=== PATIENT | female | born 1950 | race Caucasian/White ===

== ENCOUNTER 2016-10-10 17:15 | Emergency (ER) | payer OTHER ==
[2016-10-10 17:20] VITALS: BMI 25.2
[2016-10-10 18:07] LABS: BASOPHIL 1.5 % (0-2.0); EOSINOPHIL 1.5 % (0-4.5); MCH 25.8 pg (25.7-33.7); MCHC 33.1 g/dl (32.0-36.0); MEAN CELL VOLUME 78.1 fl (80-96); MEAN PLT VOLUME 10.1 fl (7.5-11.1); NEUTROPHILS 50.9 % (42.8-82.8); PLATELET COUNT 224 K/MM3 (134-434); RDW 13.9 % (11.6-15.6); WHITE BLOOD COUNT 8.3 K/mm3 (4.0-10.0)
[2016-10-10 18:08] LABS: URINE APPEARANCE SLCLOUDY; URINE BILIRUBIN NEGATIVE (NEGATIVE); URINE COLOR LTYELLOW; URINE GLUCOSE (UA) NEGATIVE (NEGATIVE); URINE KETONE NEGATIVE (NEGATIVE); URINE NITRITE NEGATIVE (NEGATIVE); URINE PROTEIN NEGATIVE (NEGATIVE); URINE UROBILINOGEN NEGATIVE E.U./dl (0.2-1.0)
--- NOTE | 2016-10-10 18:14 | PDOC ---
History of Present Illness - General Chief Complaint: Pain Stated Complaint: PCP SENT/BLOOD CLOT Time Seen by Provider: 10/10/16 17:32 History Source: Patient Exam Limitations: No Limitations - History of Present Illness Initial Comments: 10/10/16 18:15 65-year-old female presents the ED for complaints of right calf pain worsening with ambulation and movement over the past 4 days. Patient denies swelling, skin discoloration, sensory changes distally, previous DVT but does state is currently being worked up for venous stasis. Patient also complains of generalized fatigue with urinary frequency and mild shortness of breath on exertion. Patient denies history of anemia recent travel, recent illness, recent surgery, recent change in medications. Timing/Duration: other (4 days) Severity: moderate Associated Symptoms: reports: shortness of breath (mild with exertion), weakness (mild generalized). denies: chest pain, cough, fever/chills, headaches , loss of appetite, malaise, nausea/vomiting Past History - Travel Traveled outside of the country in the last 30 days: No Close contact w/someone who was outside of country & ill: No - Past Medical History Allergies/Adverse Reactions: Allergies Allergy/AdvReac Type Severity Reaction Status Date / Time fish derived [Fish derived] Allergy Severe Swelling Verified 10/10/16 17:16 levofloxacin [From Levaquin] Allergy Severe Swelling Verified 10/10/16 17:16 Penicillins Allergy Severe Swelling Verified 10/10/16 17:16 codeine Allergy Verified 10/10/16 17:16 prednisolone AdvReac Severe Nausea Verified 10/10/16 17:16 Home Medications: Ambulatory Orders Losartan 50Mg/Hctz 12.5MG 1 tab PO DAILY 10/27/15 Nitrofurantoin Monohyd/M-Cryst [Macrobid -] 100 mg PO BID #14 capsule 10/10/16 Anemia: No Asthma: No Cardiac Disorders: No Diabetes: No HTN: Yes Suicide Attempt (Hx): No - Surgical History Appendectomy: Yes - Immunization History Immunization Up to Date: Yes - Psycho/Social/Smoking Cessation Hx Anxiety: No Suicidal Ideation: No Smoking Status: No Smoking History: Never smoked Have you smoked in the past 12 months: No Number of Cigarettes Smoked Daily: 0 Information on smoking cessation initiated: No Hx Alcohol Use: No Drug/Substance Use Hx: No Substance Use Type: None Review of Systems - Review of Systems Able to Perform ROS?: No Is the patient limited Icelandic proficient: No Constitutional: Yes: Weakness (generalized) HEENTM: No: Symptoms Reported Respiratory: Yes: SOB with Exertion Cardiac (ROS): No: Symptoms Reported ABD/GI: No: Symptoms Reported : No: Symptoms Reported Musculoskeletal: Yes: Muscle Pain (right calf ) Integumentary: Yes: Symptoms Reported Neurological: Yes: Weakness (mild generalized) Endocrine: No: Symptoms Reported Hematologic/Lymphatic: No: Symptoms Reported, Blood Clots *Physical Exam - Vital Signs Last Vital Signs Temp Pulse Resp BP Pulse Ox 97.6 F 86 16 128/64 99 10/10/16 17:18 10/10/16 17:18 10/10/16 17:18 10/10/16 17:18 10/10/16 17:18 - Physical Exam General Appearance: Yes: Nourished, Appropriately Dressed. No: Apparent Distress HEENT: positive: EOMI, DAISHA. negative: Pale Conjunctivae Neck: positive: Supple Respiratory/Chest: positive: Lungs Clear, Normal Breath Sounds. negative: Respiratory Distress, Accessory Muscle Use Cardiovascular: positive: Regular Rhythm, Regular Rate. negative: Murmur Gastrointestinal/Abdominal: positive: Soft. negative: Tenderness Extremity: positive: Normal Capillary Refill, Normal Range of Motion, Calf Tenderness (+ homans sign to rle). negative: Pedal Edema Integumentary: positive: Normal Color, Warm. negative: Erythema, Pale, Swelling Neurologic: positive: Normal Mood/Affect, Motor Strength 5/5 (ambulatory) ED Treatment Course - LABORATORY CBC & Chemistry Diagram: 10/10/16 18:00 10/10/16 18:00 - RADIOLOGY Radiology Studies Ordered: Category Date Time Status CHEST X-RAY PORTABLE* [RAD] Stat Radiology 10/10/16 18:04 Ordered DUPLEX VASCUL US-1 LEG [US] Stat Ultrasound 10/10/16 17:33 Ordered Medical Decision Making - Medical Decision Making 10/10/16 18:20 Patient with rt calf tenderness sent over from the [facility] to rule out DVT. patient complaining also of mild generalized weakness, mild shortness of breath on exertion, and urinary freg.. Patient with history of hypertension in the process of being worked up for venous stasis. Patient positive Homans on my exam along with Tenderness. Patient had 2+ pedal pulses. Patient also ordered for a urinalysis, CBC, comp and chest x-ray along with duplex of the right lower extremity. 10/10/16 19:00 Laboratory Tests 10/10/16 10/10/16 10/10/16 18:00 18:00 18:00 WBC 8.3 Hgb 12.7 Hct 38.5 Plt Count 224 Neutrophils % 50.9 Sodium 138 Potassium 4.0 Chloride 102 Carbon Dioxide 28 Anion Gap 8 BUN 17 Creatinine 0.6 Creat Clearance w eGFR > 60 Random Glucose 109 H D Urine Ketones Negative Urine Blood 1+ H Ur Leukocyte Esterase 3+ H Urine WBC 315 pt ordered for urine culture. Reviewed patient's Microbiology profile. Patient has no previous positive urine culture. Patient will be given Macrobid here in the ER while awaiting duplex results. *DC/Admit/Observation/Transfer Diagnosis at time of Disposition: Logan's cyst, UTI (urinary tract infection) - Discharge Dispostion Disposition: HOME Condition at time of disposition: Stable - Prescriptions Prescriptions: Nitrofurantoin Monohyd/M-Cryst [Macrobid -] 100 mg PO BID #14 capsule - Referrals Referrals: Cristhian Lugo MD [Primary Care Provider] - - Patient Instructions Printed Discharge Instructions: DI for Logan's Cyst, DI for Urinary Tract Infection (UTI) Additional Instructions: Your Discharge Instructions: You must call primary care physician within 24 hours to arrange follow-up. Return to the Emergency Department with any new, persistent or worsening symptoms, for fever, chills, SOB, dizziness or any other concerning changes that may occur. Take Tylenol for the pain. YOU NEED TO FOLLOW UP WITH ORTHO FOR THE LOGAN'S CYST.
[2016-10-10 18:34] LABS: URINE BLOOD 1+ (NEGATIVE); URINE LEUK ESTERASE 3+ (NEGATIVE)
[2016-10-10 18:35] LABS: ALBUMIN 3.5 g/dl (3.4-5.0); ANION GAP 8 (8-16); BILIRUBIN,TOTAL 0.2 mg/dL (0.2-1.0); CALCIUM 8.5 mg/dL (8.5-10.1); CO2 28 mmol/L (21-32); CREATININE 0.6 mg/dL (0.55-1.02); GLUCOSE,RANDOM 109 mg/dL (74-106); SGOT/AST 22 U/L (15-37); SGPT/ALT 22 U/L (12-78); TOT PROT 6.9 g/dl (6.4-8.2); URINE MUCUS RARE; URINE RBC 11 /hpf (0-3); URINE WBC 315 /hpf (3-5)
[2016-10-10 18:36] LABS: ALK PHOS 112 U/L (45-117)
[2016-10-10] MEDS ORDERED: NITROFURANTOIN MACROCRYSTAL 50 MG CAPSULE (FP) PO SCH (19:15)
[2016-10-10] MEDS ORDERED: NITROFURANTOIN MACROCRYSTAL 50 MG CAPSULE (FP) ONE (19:25)
[2016-10-10 19:32] VITALS: BP 150/75; PULSE 81; TEMP 98.2
--- NOTE | 2016-10-10 20:31 | PDOC ---
*Physical Exam - Vital Signs Last Vital Signs Temp Pulse Resp BP Pulse Ox 98.2 F 81 16 150/75 98 10/10/16 19:31 10/10/16 19:31 10/10/16 19:31 10/10/16 19:31 10/10/16 19:31 ED Treatment Course - LABORATORY CBC & Chemistry Diagram: 10/10/16 18:00 10/10/16 18:00 - ADDITIONAL ORDERS Additional order review: Laboratory Results 10/10/16 10/10/16 10/10/16 18:00 18:00 18:00 Sodium 138 Potassium 4.0 Chloride 102 Carbon Dioxide 28 Anion Gap 8 BUN 17 Creatinine 0.6 Creat Clearance w eGFR > 60 Random Glucose 109 H D Calcium 8.5 Magnesium 2.2 Total Bilirubin 0.2 D AST 22 D ALT 22 Alkaline Phosphatase 112 Total Protein 6.9 Albumin 3.5 Urine Color Ltyellow Urine Appearance Slcloudy Urine pH 6.0 Urine Protein Negative Urine Glucose (UA) Negative Urine Ketones Negative Urine Blood 1+ H Urine Nitrite Negative Urine Bilirubin Negative Urine Urobilinogen Negative Ur Leukocyte Esterase 3+ H Urine RBC 11 Urine WBC 315 Ur Epithelial Cells Moderate Urine Mucus Rare 10/10/16 18:00 RBC 4.93 MCV 78.1 L MCHC 33.1 RDW 13.9 MPV 10.1 Neutrophils % 50.9 Lymphocytes % 34.6 D Monocytes % 11.5 H Eosinophils % 1.5 Basophils % 1.5 Medical Decision Making - Medical Decision Making 10/10/16 20:20 endorsed to me to follow US and labs work Patient Name: Elaine Avitia THIS IS A PRELIMINARY REPORT FROM [facility] DATE OF SERVICE: 2016-10-10 17:58:39.0 IMAGES: 25 EXAM: VENOUS DUPLEX UNILATERAL Right lower extremity REASON FOR EXAM: Pain and swelling COMPARISON : None FINDINGS: Transverse and longitudinal garcía scale views obtained. There is no echogenic thrombus. There is normal color flow filling the vessels with compressibility . Doppler demonstrates phasic and spontaneous flow as normal response to distal augmentation of the common femoral, superficial femoral, popliteal and proximal calf veins. There is a tiny 9 x 4x 8 mm IMPRESSION: No sonographic evidence of deep vein thrombosis, right leg. Tiny Logan's cyst. THIS DOCUMENT HAS BEEN ELECTRONICALLY SIGNED Guerline Hoffmann D.O. 10/10/2016 18:[place] GUTIERREZ M.D. Please call [facility] Attendant [phone] ([phone]) with questions 10/10/16 20:21 Laboratory Tests 10/10/16 18:00 Urine Color Ltyellow Urine Appearance Slcloudy Urine pH 6.0 Ur Specific Wright Pending Urine Protein Negative Urine Glucose (UA) Negative Urine Ketones Negative Urine Blood 1+ H Urine Nitrite Negative Urine Bilirubin Negative Urine Urobilinogen Negative Ur Leukocyte Esterase 3+ H Urine RBC 11 Urine WBC 315 Ur Epithelial Cells Moderate Urine Mucus Rare Patient received macrobid in the ED will sent Rx to the pharmacy. d/w patient the results of the Ortho for the Logan's cyst I discussed the physical exam findings, ancillary test results and final diagnoses with the patient. I answered all of the patient's questions. The patient was satisfied with the care received and felt comfortable with the discharge plan and treatment plan. The Patient agrees to follow up with the primary care physician within 24-72 hours. *DC/Admit/Observation/Transfer Diagnosis at time of Disposition: Logan's cyst Qualifiers: Laterality: unspecified laterality Qualified Code(s): M71.20 - Synovial cyst of popliteal space [Logan], unspecified knee UTI (urinary tract infection) Qualifiers: Urinary tract infection type: site unspecified Hematuria presence: without hematuria Qualified Code(s): N39.0 - Urinary tract infection, site not specified - Discharge Dispostion Disposition: HOME Condition at time of disposition: Stable - Prescriptions Prescriptions: Nitrofurantoin Monohyd/M-Cryst [Macrobid -] 100 mg PO BID #14 capsule - Referrals Referrals: Cristhian Lugo MD [Primary Care Provider] - - Patient Instructions Printed Discharge Instructions: DI for Urinary Tract Infection (UTI), DI for Logan's Cyst Additional Instructions: Your Discharge Instructions: You must call primary care physician within 24 hours to arrange follow-up. Return to the Emergency Department with any new, persistent or worsening symptoms, for fever, chills, SOB, dizziness or any other concerning changes that may occur. Take Tylenol for the pain. YOU NEED TO FOLLOW UP WITH ORTHO FOR THE LOGAN'S CYST.
== END 2016-10-10 20:39 | disposition home or self-care (01) ==
LOC: JER 17:15
DX: M71.21 Synovial cyst of popliteal space [Baker], right knee (principal); N39.0 Urinary tract infection, site not specified; I10 Essential (primary) hypertension
CPT/HCPCS: 36415; 71010-TC; 80053; 81003; 81015; 83735; 85025; 87086; 93971-TC; 99282-25

== ENCOUNTER 2018-05-13 00:20 | Emergency (ER) | payer BC, OTHER ==
--- NOTE | 2018-05-13 00:37 | PDOC ---
Attending Attestation - HPI HPI: 05/13/18 01:15 The patient is a 67 year old female with past medical history significant for HTN presents to the emergency department with shortness of breath. The patient reports she was on the phone with her son while eating some mixed peanuts when a sudden onset shortness of breath presented with the sensation that something is stuck in her throat. The patient currently denies any symptoms. Allergies: Penicillins, prednisolone, levofloxacin, and fish derived Social history: None reported. Surgical history: Appendectomy, Joint Replacement PCP: Cristhian Lugo. - Physicial Exam PE: 05/13/18 01:14 GENERAL: afebrile Awake, alert, and fully oriented, in no acute distress HEAD: No signs of trauma EYES: PERRLA, EOMI, sclera anicteric, conjunctiva clear ENT: +very dry lips. No throat swelling, no voice changes. Auricles normal inspection, hearing grossly normal, nares patent, oropharynx clear without exudates. Moist mucosa NECK: Normal ROM, supple, no lymphadenopathy, JVD, or masses LUNGS: Breath sounds equal, clear to auscultation bilaterally. No wheezes, and no crackles HEART: Regular rate and rhythm, not tachycardia, normal S1 and S2, no murmurs, rubs or gallops ABDOMEN: no flank pain. Soft, nontender, normoactive bowel sounds. No guarding , no rebound. No masses EXTREMITIES: No pitting edema. Normal range of motion, no edema. No clubbing or cyanosis. No cords, erythema, or tenderness NEUROLOGICAL: Cranial nerves II through XII grossly intact. Normal speech. SKIN: Warm, Dry, normal turgor, no rashes or lesions noted. - Medical Decision Making 05/13/18 01:14 Documentation prepared by Wendy Hernandez, acting as medical delivery technician for Mihaela Noonan MD. <Wendy Hernandez - Last Filed: 05/13/18 01:15> - Resident Resident Name: Marco Preston - ED Attending Attestation I have performed the following: I have examined & evaluated the patient, The case was reviewed & discussed with the resident, I agree w/resident's findings & plan - Medical Decision Making 05/13/18 01:05 Pt will have a set of blood tests; CXR and soft tissue of the neck XRAYS. Pt will be hydrated in the ER and she will be observed. Currently she feels improved. She states that she had been eating the mixed nuts and her throat felt slightly tight. However now pt feels fine and she has no complaints. On exam she has dry lips and she admits that she doesn't drink water because she is on a water pill and she doesn't want to have to run to the bathroom.; 05/13/18 02:32 Patient Name: ERNST PALENCIA THIS IS A PRELIMINARY REPORT FROM [facility] DATE OF SERVICE: 2018-05-13 01:56:43 IMAGES: 2 EXAM: X-RAY SOFT TISSUE NECK HISTORY: 67-Year-Old Female With Foreign Body Sensation In The Neck Evaluate For Obstruction. COMPARISON: None. FINDINGS: Projected over the upper cervical esophagus there is a 5 x 1 mm nonspecific radiodense foreign body suspicious for a fishbone. Soft tissues of the neck otherwise appear unremarkable. Mild to moderate degenerative disc disease. IMPRESSION: Projected over the upper cervical esophagus there is a 5 x 1 mm nonspecific radiodense foreign body suspicious for a fishbone. If clinically indicated follow-up evaluation with a CT Scan Of The Soft Tissues Of The Neck may be needed. Mild to moderate degenerative disc disease. We will send her for a CT soft tissue of neck without contrast 05/13/18 02:45 Radiologist and I discussed that pt is allergic to fish, thus no fish bone; she had eaten nuts - no calcium in the nut or the shells; she may have a chicken bone in the throat, or this may be artifact or thyroid bone calciofication. 05/13/18 04:27 Patient Name: ERNST PALENCIA THIS IS A PRELIMINARY REPORT FROM [facility] DATE OF SERVICE: 2018-05-13 02:53:12 IMAGES: 309 EXAM: SOFT TISSUE NECK CT W/O CONTR HISTORY: 67 year-old female evaluate for foreign body. COMPARISON: None. FINDINGS: Left mandible periapical abscesses. Right maxilla impacted tooth. Right maxillary sinus mucous retention cyst or polyp. Mild mucosal thickening in the ethmoid sinuses. The remainder the sinuses and mastoid air cells are clear. Mild degenerative disc disease with mild to moderate degenerative joint disease of the uncovertebral joints and facets throughout the cervical spine. Calcified arteriosclerosis of the aorta. Mild calcified arteriosclerosis of the carotid bulbs. Lack of intravenous contrast limits this exam. No radiodense foreign body. Fatty atrophy of the parotid glands. Soft tissue tissues of the neck otherwise appear unremarkable. IMPRESSION: No radiodense foreign body. Left mandible periapical abscesses. If clinically indicated recommend a dentist referral. Right maxilla impacted tooth. Mild ethmoid sinusitis. Mild degenerative disc disease with mild to moderate degenerative joint disease of the uncovertebral joints and facets throughout the cervical spine. 05/13/18 04:27 Pt is stable for d/c; she will follow with her dentist. Pt was reassured about the throat sensation. She was advised to not eat nuts. <Mihaela Noonan - Last Filed: 05/13/18 04:28>
[2018-05-13] MEDS ORDERED: SODIUM CHLORIDE 0.9% 1000 ML INFUS.BAG IV ONE (01:04)
--- NOTE | 2018-05-13 01:13 | PDOC ---
History of Present Illness - General Chief Complaint: Shortness of Breath Stated Complaint: DIFF BREATHING Time Seen by Provider: 05/13/18 00:30 History Source: Patient Exam Limitations: No Limitations - History of Present Illness Initial Comments: 05/13/18 01:07 The patient is a 67F with a PMH of HTN who presents to the ER stating "I am short of breath". She states that she was eating mixed nuts and began to feel weak and having "something in her throat". She denies any CP, SOB, numbness, tingling, weakness, syncope, or allergic reaction in the past to mixed nuts. She denies any other symptoms. Past History - Past Medical History Allergies/Adverse Reactions: Allergies Allergy/AdvReac Type Severity Reaction Status Date / Time fish derived [Fish derived] Allergy Severe Swelling Verified 05/13/18 00:46 levofloxacin [From Levaquin] Allergy Severe Swelling Verified 05/13/18 00:46 Penicillins Allergy Severe Swelling Verified 05/13/18 00:46 codeine Allergy Verified 05/13/18 00:46 prednisolone AdvReac Severe Nausea Verified 05/13/18 00:46 Home Medications: Ambulatory Orders Losartan 50Mg/Hctz 12.5MG 1 tab PO DAILY 10/27/15 Nitrofurantoin Monohyd/M-Cryst [Macrobid -] 100 mg PO BID #14 capsule 10/10/16 Anemia: No Asthma: No Cardiac Disorders: No Diabetes: No HTN: Yes - Surgical History Appendectomy: Yes - Immunization History Immunization Up to Date: Yes - Suicide/Smoking/Psychosocial Hx Smoking Status: No Smoking History: Never smoked Have you smoked in the past 12 months: No Number of Cigarettes Smoked Daily: 0 Information on smoking cessation initiated: No Hx Alcohol Use: No Drug/Substance Use Hx: No Substance Use Type: None Review of Systems - Review of Systems Able to Perform ROS?: Yes Comments:: 05/13/18 01:13 GENERAL/CONSTITUTIONAL: Positive for weakness. No fever or chills. HEAD, EYES, EARS, NOSE AND THROAT: Positive for sensation of "something in her throat". No change in vision. No ear pain or discharge. CARDIOVASCULAR: No chest pain, palpitations, or lightheadedness. RESPIRATORY: No cough, wheezing, shortness of breath, or hemoptysis. GASTROINTESTINAL: No nausea, vomiting, diarrhea, constipation, or abdominal pain. GENITOURINARY: No dysuria, frequency, hematuria, or change in urination. MUSCULOSKELETAL: No joint or muscle swelling or pain. No neck or back pain. SKIN: No rash or lesions. NEUROLOGIC: No headache, numbness, tingling, focal weakness, loss of consciousness, or change in strength/sensation. Is the patient limited Cymraes proficient: No *Physical Exam - Vital Signs Last Vital Signs Temp Pulse Resp BP Pulse Ox 97.8 F 77 22 H 117/13 L 98 05/13/18 00:30 05/13/18 00:30 05/13/18 00:30 05/13/18 00:30 05/13/18 00:30 - Physical Exam Comments: 05/13/18 01:14 GENERAL: Well developed, well nourished. Awake and alert. No acute distress. HEENT: Normocephalic, atraumatic. Hearing grossly normal. Moist mucous membranes. PERRLA, EOMI. No conjunctival pallor. Sclera are non-icteric. Oropharynx is clear without edema or exudates. NECK: Supple. Full ROM. No JVD. CARDIOVASCULAR: Regular rate and rhythm. No murmurs, rubs, or gallops. PULMONARY: No evidence of respiratory distress. Lungs clear to auscultation bilaterally. No wheezing, rales or rhonchi. ABDOMINAL: Soft. Non-tender. Non-distended. No rebound or guarding. GENITOURINARY: No CVA tenderness bilaterally. MUSCULOSKELETAL: Normal range of motion at all joints. No bony deformities or tenderness. EXTREMITIES: No cyanosis. No clubbing. No edema. No calf tenderness or swelling. SKIN: Warm and dry. Normal capillary refill. No rashes. No jaundice. NEUROLOGICAL: Alert, awake, appropriate. Cranial nerves 2-12 grossly intact. Normal speech. PSYCHIATRIC: Cooperative. Good eye contact. Appropriate mood and affect. Moderate Sedation - Procedure Monitoring Vital Signs: Procedure Monitoring Vital Signs Temperature 97.8 F 05/13/18 00:30 Pulse Rate 77 05/13/18 00:30 Respiratory Rate 22 H 05/13/18 00:30 Blood Pressure 117/13 L 05/13/18 00:30 O2 Sat by Pulse Oximetry (%) 98 05/13/18 00:30 ED Treatment Course - RADIOLOGY Radiology Studies Ordered: Category Date Time Status CHEST X-RAY PORTABLE* [RAD] Stat Radiology 05/13/18 00:30 Ordered Medical Decision Making - Medical Decision Making 05/13/18 01:15 The patient is a 67F with a PMH of HTN who presents to the ER with sudden onset weakness and sensation of something in her throat. PT was immediately placed on monitor and found to have normal vitals. PE unremarkable. Pt speaking in harsh voice and not opening eyes but when answering to a joke she would laugh and look up normally and speak normally. Will order labs and XR to r/o any occult causes of weakness. Son at bedside. Pending labs. 05/13/18 02:00 Pt refused IV and bloodwork. Pending XR. 05/13/18 03:43 Soft tissue neck showed possible foreign object. CT negative for foreign object. Will d/c with PCP f/u. *DC/Admit/Observation/Transfer Diagnosis at time of Disposition: Weakness - Discharge Dispostion Disposition: HOME Condition at time of disposition: Stable Decision to Admit order: No - Referrals - Patient Instructions Additional Instructions: Please follow up with your primary care physician in 2-3 days. Please return to the ER if you have any signs or symptoms of chest pain, shortness of breath, uncontrollable fever, chills, nausea, vomiting, numbness, tingling, or weakness in any part of your body, changes in vision, or slurred speech. Please take your medications as prescribed. Please return to the ER if symptoms persist, worsen, or new symptoms arise. - Post Discharge Activity
[2018-05-13 01:16] VITALS: BMI 28.3
[2018-05-13 03:55] VITALS: BP 112/64; PULSE 78; TEMP 98.8
--- NOTE | 2018-05-13 15:29 | EKG ---
Test Reason : Blood Pressure : / mmHG Vent. Rate : 073 BPM Atrial Rate : 073 BPM P-R Int : 160 ms QRS Dur : 074 ms QT Int : 396 ms P-R-T Axes : 055 024 050 degrees QTc Int : 436 ms NORMAL SINUS RHYTHM LOW VOLTAGE QRS BORDERLINE ECG WHEN COMPARED WITH ECG OF 01-OCT-2015 23:05, NO SIGNIFICANT CHANGE WAS FOUND Confirmed by Maxwell Bond MD ([id number]) on 05/13/2018 3:29:20 PM Referred By: Confirmed By:Maxwell Bond MD
== END 2018-05-13 03:58 | disposition home or self-care (01) ==
LOC: JER 00:20
DX: R53.1 Weakness (principal); I10 Essential (primary) hypertension; K04.7 Periapical abscess without sinus; K01.1 Impacted teeth; J32.0 Chronic maxillary sinusitis
CPT/HCPCS: 70360-TC-FY; 70490-TC; 71045-TC-FY; 93005; 93010; 99282-25

== ENCOUNTER 2023-10-03 19:15 | Emergency (ER) | payer OTHER, BC ==
[2023-10-03 19:28] VITALS: TEMP 99.2; BMI 33.4
[2023-10-03] MEDS ORDERED: ONDANSETRON 4 MG/2 ML VIAL ONE (20:22)
[2023-10-03] MEDS ORDERED: ACETAMINOPHEN INJECTION 100 ML IVPB ONE (20:22)
[2023-10-03] MEDS ORDERED: FAMOTIDINE 20 MG/50 ML IVPB 20 MG/50 ML MG IVPB ONE (20:23)
[2023-10-03] MEDS: ONDANSETRON 4 MG/2 ML VIAL IVPUSH ONE (21:15)
[2023-10-03] MEDS: FAMOTIDINE 20 MG/50 ML IVPB 20 MG/50 ML MG IVPB ONE (21:15)
[2023-10-03] MEDS: SODIUM CHLORIDE 0.9% 500 ML INFUS.BAG IV ONE (21:15)
[2023-10-03 21:16] LABS: BASO % 0.2 % (0-2.0); EOS % 0.3 % (0-4.5); HEMATOCRIT 40.2 % (32.4-45.2); HEMOGLOBIN 13.5 GM/dL (10.7-15.3); LYMPH % 7.1 % (8-40); MCH 28.5 pg (25.7-33.7); MCHC 33.7 g/dl (32.0-36.0); MEAN CELL VOLUME 84.7 fl (80-96); MEAN PLT VOLUME 10.1 fl (7.5-11.1); MONO % 3.8 % (3.8-10.2); NEUT % 88.6 % (42.8-82.8); PLATELET COUNT 250 10^3/uL (134-434); RBC 4.75 M/mm3 (3.60-5.2); RDW 14.6 % (11.6-15.6); WHITE BLOOD COUNT 9.4 K/mm3 (4.0-10.0)
[2023-10-03] MEDS: ACETAMINOPHEN 1000 MG/100 ML BAG IVPB ONE (21:31)
[2023-10-03 22:27] LABS: EPI CELLS 19 /uL (0-25.1); HYALINE CASTS 0 /uL (0-3.1); URINE APPEARANCE CLEAR; URINE BACTERIA 23 /uL (0-1359); URINE BILIRUBIN NEGATIVE (NEGATIVE); URINE COLOR YELLOW; URINE GLUCOSE (UA) NEGATIVE (NEGATIVE); URINE KETONE NEGATIVE (NEGATIVE); URINE LEUK ESTERASE 1+ (NEGATIVE); URINE NITRITE NEGATIVE (NEGATIVE); URINE PROTEIN NEGATIVE (NEGATIVE); URINE RBC 19 /uL (0-23.9); URINE UROBILINOGEN 0.2 mg/dL (0.2-1.0); URINE WBC 18 /uL (0-25.8)
[2023-10-04 00:21] LABS: POTASSIUM 5.8 mmol/L (3.5-5.1)
[2023-10-04 00:24] LABS: ALBUMIN 2.8 g/dl (3.4-5.0)
[2023-10-04 00:27] LABS: CREATININE 0.6 mg/dL (0.55-1.3)
[2023-10-04 00:28] LABS: BILIRUBIN,TOTAL 0.3 mg/dL (0.2-1); TOT PROT 6.1 g/dl (6.4-8.2)
[2023-10-04 02:01] VITALS: BP 119/71; PULSE 72; RESP 17
== END 2023-10-04 02:29 | disposition home or self-care (01) ==
LOC: JER 19:15
PROC: 3E033GC Introduction of Other Therapeutic Substance into Peripheral Vein, Percutaneous Approach (ICD-10-PCS; principal; 2023-10-03)
PROC: 3E033NZ Introduction of Analgesics, Hypnotics, Sedatives into Peripheral Vein, Percutaneous Approach (ICD-10-PCS; 2023-10-03)
PROC: 3E033GC Introduction of Other Therapeutic Substance into Peripheral Vein, Percutaneous Approach (ICD-10-PCS; 2023-10-03)
DX: K52.9 Noninfective gastroenteritis and colitis, unspecified (principal); R10.84 Generalized abdominal pain; R51.9 Headache, unspecified; R68.83 Chills (without fever); R63.0 Anorexia; R42 Dizziness and giddiness; R11.2 Nausea with vomiting, unspecified; Z20.822 Contact with and (suspected) exposure to COVID-19
CPT/HCPCS: 0241U-QW; 36415; 70450-TC; 71045-TC-FY; 74177-TC; 80053; 81003; 83605; 83690; 84484; 85025; 87086; 93005; 93010; 96365; 96375; 99285-25; J0131

== ENCOUNTER 2024-08-16 23:39 | Emergency (ER) | payer OTHER, BC ==
[2024-08-16 23:50] VITALS: BP 132/60; PULSE 81; RESP 16; TEMP 98.1; BMI 20.7
[2024-08-17] MEDS ORDERED: KETOROLAC TROMETHAMINE 30 MG/1 ML VIAL ONE (00:22)
[2024-08-17] MEDS ORDERED: NAPROXEN 500 MG TABLET ONE (00:25)
[2024-08-17] MEDS: KETOROLAC TROMETHAMINE 30 MG/1 ML VIAL IM ONE (00:26)
[2024-08-17] MEDS: NAPROXEN 500 MG TABLET PO ONE (00:27)
[2024-08-17] MEDS ORDERED: cefTRIAXone SODIUM 1 GM VIAL ONE (01:40)
[2024-08-17] MEDS ORDERED: AZITHROMYCIN 500 MG VIAL IVPB ONE (01:40)
[2024-08-17] MEDS: CEFTRIAXONE 1,000 MG in DEXTROSE 5%-WATER - 50 ML IVPB ONE (01:45)
[2024-08-17] MEDS: AZITHROMYCIN IVPB 500 MG in DEXTROSE 5%-WATER - 250 ML IVPB ONE (02:04)
[2024-08-17 02:05] LABS: ABSOLUTE IMMATURE GRANULOCYTES 0.04 x10^3/uL (0.0-0.031); BASOPHILS # 0.06 x10^3/uL (0.01-0.08); EOSINOPHIL % 1.7 % (0.7-5.8); EOSINOPHILS # 0.17 x10^3/uL (0.04-0.36); HEMOGLOBIN 13.1 g/dL (11.2-15.7); MCHC 32.8 g/dl (32.2-35.5); MEAN CELL VOLUME 85.1 fl (79.4-94.8); MEAN PLT VOLUME 11.7 fl (9.4-12.3); MONOCYTE # 0.97 x10^3/uL (0.24-0.86); MONOCYTE % 9.4 % (4.7-12.5); PLATELET COUNT 212 x10^3/uL (182-369); RDW 13.5 % (12.4-16.6)
[2024-08-17 02:21] LABS: CHLORIDE 100 mmol/L (98-107); SODIUM 133 mmol/L (136-145)
[2024-08-17 02:23] LABS: CALCIUM 9.2 mg/dL (8.5-10.1)
[2024-08-17 02:24] LABS: ALBUMIN 3.9 g/dl (3.4-5.0); BLOOD UREA NITROGEN 22.8 mg/dL (7-18); CO2 29 mmol/L (21-32); GLUCOSE,RANDOM 123 mg/dL (74-106)
[2024-08-17 02:27] LABS: CREATININE 0.7 mg/dL (0.55-1.3); SGOT/AST 66 U/L (15-37); SGPT/ALT 24 U/L (13-61)
[2024-08-17 02:28] LABS: BILIRUBIN,TOTAL 0.3 mg/dL (0.2-1)
[2024-08-17 02:29] LABS: TOT PROT 7.6 g/dl (6.4-8.2)
[2024-08-17 02:30] LABS: ALK PHOS 102 U/L (45-117)
[2024-08-17 02:52] LABS: ANION GAP 4 mmol/L (4-13); POTASSIUM 6.8 mmol/L (3.5-5.1)
[2024-08-17 04:13] LABS: POTASSIUM 3.4 mmol/L (3.5-5.1)
[2024-08-17 04:14] LABS: CALCIUM 8.2 mg/dL (8.5-10.1)
[2024-08-17 04:19] LABS: CREATININE 0.6 mg/dL (0.55-1.3)
== END 2024-08-17 04:19 | disposition home or self-care (01) ==
LOC: FER 23:39
DX: M54.6 Pain in thoracic spine (principal); J18.9 Pneumonia, unspecified organism; R05.9 Cough, unspecified; R94.31 Abnormal electrocardiogram [ECG] [EKG]
CPT/HCPCS: 36415; 71045-TC-FY; 80048; 80053; 85025; 93005; 99285-25